=== PATIENT | male | born 2000 | race Caucasian/White ===

== ENCOUNTER 2021-03-30 17:49 | Emergency (ER) | payer OTHER ==
[2021-03-30 18:58] LABS: HEMOGLOBIN 17.6 gm/dl (14.0-17.5); RED BLOOD COUNT 5.82 M/UL (4.20-5.50); WHITE BLOOD COUNT 12.7 K/UL (4.5-11.0)
[2021-03-30 19:20] LABS: BUN/CREATININE RATIO 26 (0-10)
[2021-03-30] MEDS ORDERED: ZOFRAN ODT 4 MG4 MG SL (20:38)
== END 2021-03-30 22:16 | disposition home or self-care (01) ==
LOC: ER1 17:49
PROVIDERS: Physician Assistant
DX: R11.10 Vomiting, unspecified (principal); E10.65 Type 1 diabetes mellitus with hyperglycemia; M06.9 Rheumatoid arthritis, unspecified
CPT/HCPCS: 71045; 80053; 81001; 82009; 82962; 85025; 96374; 96375; 99284; J1885; J2405; J7030

== ENCOUNTER 2022-04-03 22:13 | Emergency (ER) | payer OTHER ==
[~2022-04-03 22:13] MED LIST: ZOFRAN ODT 4 MG4 MG SL
[2022-04-03 22:37] LABS: HEMOGLOBIN 15.9 gm/dl (14.0-17.5); RED BLOOD COUNT 5.29 M/UL (4.20-5.50); WHITE BLOOD COUNT 6.1 K/UL (4.5-11.0)
[2022-04-03 23:08] LABS: BUN/CREATININE RATIO 25 (0-10)
== END 2022-04-04 00:45 | disposition home or self-care (01) ==
LOC: ER1 22:13
PROVIDERS: Physician Assistant
DX: S00.03XA Contusion of scalp, initial encounter (principal); E10.65 Type 1 diabetes mellitus with hyperglycemia; G91.9 Hydrocephalus, unspecified; E10.43 Type 1 diabetes mellitus with diabetic autonomic (poly)neuropathy; K31.84 Gastroparesis; Z88.8 Allergy status to other drugs, medicaments and biological substances; W22.8XXA Striking against or struck by other objects, initial encounter
CPT/HCPCS: 70450; 72125; 80053; 81001; 82009; 82550; 82553; 82800; 82962; 84484; 85025; 93005; 96374; 99284

== ENCOUNTER → 2022-05-16 | Outpatient (CLI) | payer OTHER | LOC: EMI 05-03 10:15 | DX: R27.0 Ataxia, unspecified (principal); R51.9 Headache, unspecified; G91.9 Hydrocephalus, unspecified | CPT/HCPCS: 70551 ==